=== PATIENT | male | born 1960 | race Caucasian/White ===

== ENCOUNTER 2018-03-12 09:04 | Emergency (ER) | payer SELFPAY ==
[2018-03-12] MEDS: KETOROLAC 30 MG INJ IM (09:38)
== END 2018-03-12 12:00 | disposition home or self-care (01) ==
LOC: FTE 09:04
DX: M54.41 Lumbago with sciatica, right side (principal); E11.9 Type 2 diabetes mellitus without complications
CPT/HCPCS: 72131; 96372; 99285-25